=== PATIENT | male | born 1985 | race Caucasian/White ===

== ENCOUNTER 2018-05-26 08:13 | Emergency (ER) | payer SELFPAY ==
[~2018-05-26] VITALS: Ht 172.7 cm; Wt 87.1 kg
[2018-05-26 08:23] VITALS: BP 120/91; Ht 172.7 cm; Wt 87.1 kg
== END 2018-05-26 09:06 | disposition home or self-care (01) ==
LOC: ED 08:13
DX: K02.9 Dental caries, unspecified (principal); K08.89 Other specified disorders of teeth and supporting structures; F17.210 Nicotine dependence, cigarettes, uncomplicated; F15.10 Other stimulant abuse, uncomplicated
CPT/HCPCS: 99406